=== PATIENT | male | born 1990 | race Caucasian/White ===

== ENCOUNTER 2018-02-08 18:29 | Emergency (ER) | payer OTHER, SELFPAY ==
[2018-02-08 18:32] VITALS: BP 157/95; PULSE 73; RESP 20; TEMP 36.2; O2SAT 97; BMI 34.8
--- NOTE | 2018-02-08 20:35 | ED_ITS ---
HPI - Eye Problem General Chief complaint: Eye Problems Stated complaint: ER EYE AND FACIAL SWELLING Time Seen by Provider: 02/08/18 20:00 Source: patient Mode of arrival: ambulatory Limitations: no limitations History of Present Illness HPI Narrative: Patient is a 28-year-old male who presents with right eye pain. He was working on his deep and a bowl full up and hit him in the eye. His he does have pain denies any blurry vision. Sometimes he has a foreign body sensation. He does were glasses. He is able to open his eye completely. He initially was having some green discharge but that has resolved. chief complaint: eye pain Review of Systems Review of Systems GENERAL: Denies chills,fever HEENT: See HPI RESPIRATORY: Denies dyspnea, cough, wheezing CARDIOVASCULAR: Denies chest pain, palpitations GASTROINTESTINAL: Denies nausea, vomiting MUSCULOSKELETAL: Denies extremity pain, injury SKIN: No rash, no laceration, no pruritus NEUROLOGIC: Denies weakness, dizziness, headache, numbness 8 point review of systems is negative except for those stated above and HPI PFSH Medical History Healthy adult (Acute) Social History Smoking Status: Current some day smoker Exam Initial Vital Signs Initial Vital Signs: Vital Signs Temperature 97.2 F L 02/08/18 18:32 Pulse Rate 73 02/08/18 18:32 Respiratory Rate 20 02/08/18 18:32 Blood Pressure 157/95 H 02/08/18 18:32 Pulse Oximetry 97 02/08/18 18:32 GENERAL: Well-appearing, well-nourished and in no acute distress. CARDIOVASCULAR: peripheral pulses in tact, cap refill <2 sec RESPIRATORY: No respiratory distress, speaks in full sentences without difficulty EXTREMITIES: Normal range of motion, no clubbing or edema. Neurovascularly intact NEUROLOGICAL: Cranial nerves II through XII grossly intact. Normal gait and speech. SKIN: Warm, dry, no petechiae, no rashes or lesions. Eyes Alignment and Position: alignment normal Periorbital: periorbital findings abnormal right periorbital swelling and periorbital tenderness Eyelids: eyelid abnormality right upper eyelid (Contusion minimal swelling) tenderness Conjunctivae: conjunctivae normal Sclera: sclerae normal Cornea: corneas normal Pupils: PERRL EOM: EOM intact bilaterally Direct ophthalmoscopy: normal light reflex Other: Right eye: is stained with fluorescein and examined under Garsia lamp, no dye uptake. Pressure 17 mmHg Left eye: Pressure 19mmHg Course Vital Signs - 8 hr 02/08/18 18:32 02/08/18 20:40 Temperature 97.2 F L 97.7 F Pulse Rate 73 52 L Respiratory Rate 20 12 Blood Pressure 157/95 H Blood Pressure [Right Arm] 144/85 H Pulse Oximetry 97 99 MDM - Eye Problem Lab Data Please seen nursing for visual acuity Discharge Plan Departure Patient Disposition: Home Clinical Impression: Contusion of eyelid, right Discharge Date/Time: 02/08/18 21:06 Interventions: ED Discharge Assessment Last Done: 02/08/18 21:05 Instructions: DI for Eye Contusion Activity Restrictions/Additional Instructions: *You have been diagnosed with right eye contusion *What to do: Expect to have some swelling in the morning for the next couple days but overall should start to get better. Ice 20 30 min at a time then removed *Continue to take medications as directed Ibuprofen 600 mg every 6-8 hours if needed for pain *Follow up with your primary care provider in 2-3 days *Return to ER if you should have decreased vision, increased eye pain or any new , worsening or concerning symptoms Referrals: Yelena Siddiqui MD [Physician] -
[2018-02-08 20:40] VITALS: BP 144/85; PULSE 52; RESP 12; TEMP 36.5; O2SAT 99
== END 2018-02-08 21:06 | disposition home or self-care (01) ==
PROVIDERS: Emergency Provider Emergency Medicine
DX: S00.11XA Contusion of right eyelid and periocular area, initial encounter (principal); W22.8XXA Striking against or struck by other objects, initial encounter
CPT/HCPCS: 99283

== ENCOUNTER → 2020-07-17 09:32 | Outpatient (CLI) | payer OTHER, SELFPAY ==
[2020-07-17 10:01] LABS: COVID19 -Nasal RAPID Negative (Negative)
== END ==
PROVIDERS: PCP Student in an Organized Health Care Education/Training Program; Visit Provider Surgery
DX: Z20.822 Contact with and (suspected) exposure to COVID-19 (principal)
CPT/HCPCS: 87635; C9803

== ENCOUNTER 2020-07-20 06:16 | Day surgery (SDC) | payer OTHER, SELFPAY ==
--- NOTE | 2020-07-20 | PATH_ITS ---
[facility] Accession Number: [id number] . 01 Material submitted: . body - PILONIDAL SINUS . 02 Diagnosis: Pilonidal Sinus, Biopsy: Skin with subcutaneous chronic active inflammation and granulation tissue, consistent with the surgical impression of pilonidal sinus. No evidence of neoplasm. MRV 07/23/2020 0919 Local . 02 Electronically signed: . Ana M Harris MD, Pathologist NPI- [id number] . 01 Gross description: . The specimen is received in formalin, labeled pilonidal sinus and consists of three mac fragments of skin and soft tissue measuring 1.8 x 0.6 x 0.4 cm in aggregate. The margins are inked blue. The specimen is entirely submitted in cassette A1. (EA:[id number]) /MRV 07/22/2020 1415 Local . 02 Pathologist provided ICD-10: L05.92 . 02 CPT . 008983 Performed at: 01 [facility] [address] [place] [address], [place], [place] [id number] MD Valentin Boudreaux MD Phone: [phone] Performed at: 02 [facility] [address] [place], [place] [id number] MD Ana M Harris MD Phone: [phone]
[2020-07-20 06:54] VITALS: BP 154/96; PULSE 57; RESP 13; TEMP 36.8; O2SAT 99
[2020-07-20] MEDS: LACTATED RINGERS 1,000 ML 100 ML IV (07:09)
[2020-07-20] MEDS: ACETAMINOPHEN 325 MG TABLET 975 MG PO (07:18)
--- NOTE | 2020-07-20 07:37 | PM.HP.1 ---
History of Present Illness History of Present Illness Date Patient Seen: 07/20/20 Time Patient Seen: 07:38 Chief complaint: EXCISION OF PILONIDAL CYST Narrative: This is a 30 yo man with history of morbid obesity (BMI 40), cystic acne, chronic skin abscesses, psoriasis who comes in with c/o pilonidal cyst and thigh abscess. He has has an eight year history of pilonidal disease. He has had the abscess drained twice, and it is currently fairly quiescent. The last drainage procedure was about three months ago, associated with swelling, pain, warmth, tenderness, and fluctuance. He has also had chronic skin infections in both axilla, on his chest and back, in his groin, and between his thighs. In the past he has incised the abscesses himself and allowed them to drain. He has never been diagnosed with hidradenitis. He currently has an active abscess on his left inner thigh. He does not have any active abscesses in the other areas. He was following at [facility] in [place] for his psoriasis prior to [facility] but has not been seen in many months. He says he was using a steroid cream but he has run out and has not used it for a while. ROS: Skin lesions, joint pain Thirteen system review is otherwise negative other than as mentioned below and in HPI. PE: GENERAL: Well groomed and cooperative. Morbidly obese. Appears stated age. Answers questions promptly and appropriately. Vital signs noted. HENT: Normocephalic, atraumatic. Hearing intact. EYES: Conjunctiva pink, sclera white, no periorbital swelling. CARDIOVASCULAR: Regular rate. No pedal edema. RESPIRATORY: Non-tachypneic, breathing comfortably on room air. GASTROINTESTINAL: Abdomen soft and non-distended GENITALURINARY: No flank tenderness. MUSCULOSKELETAL: Equal tone and mass bilaterally. NEURO: Alert and Oriented X 3. No gross sensory deficits, or cognitive issues. PSYCH: Appropriate affect and mood. Patient History Medical History Healthy adult Pilonidal cyst Family & Social History Social History: household members spouse Tobacco & Substance use: Smoking Status Former smoker alcohol intake current alcohol intake frequency a few times a month Substance Use Type does not use Meds Home Medications and Allergies Home Medications Medication Instructions Recorded Confirmed Type No Known Home Medications 05/26/20 07/08/20 History Allergies Allergy/AdvReac Type Severity Reaction Status Date / Time No Known Drug Allergies Allergy Unverified 07/08/20 14:18 Exam Vital Signs (past 8 hours): - 07/20/20 06:54 Temperature 98.3 F Pulse Rate 57 L Respiratory Rate 13 Blood Pressure 154/96 H Pulse Oximetry 99 Oxygen Delivery Method Room Air Oxygen Flow Rate 0 Assessment & Plan Assessment and plan (1) Morbid obesity: Status: Acute (2) Pilonidal cyst: Status: Acute Assessment & Plan narrative: Risks and benefits of pilonidal cyst excision or discussed the risk of bleeding infection, damage to nearby structures, recurrence, need for additional procedures. Plan: Proceed to OR for condyle cyst excision COVID-19 COVID-19 status: Negative Result date/Date tested (Pos, Neg/Pending): 07/17/20 Time Spent With Patient Time with patient: 15-24 minutes Quality VTE Deep Vein Thrombosis/Pulmonary Embolism Present on Admission: No
[2020-07-20] MEDS: CEFAZOLIN 2 GM/100 ML FROZ.PIGGY IV (07:51)
[2020-07-20] MEDS: metroNIDAZOLE 500 MG/100 ML PIGGYBACK 100 MG IV (08:06)
--- NOTE | 2020-07-20 08:11 | SUR.OPER ---
Prone on padded OR bed, head in foam head support, gel chest rolls, gel pad under knees, pillow under lower legs, toes free of pressure, arms secured on padded arm boards at <90 degrees abduction. Safety belt at thigh.
[2020-07-20] MEDS: BUPIVACAINE LIPOSOME 266 MG/20 ML VIAL INJ (08:21)
[2020-07-20] MEDS: BUPIVACAINE 0.5% W/ EPI (PF) 30 ML VIAL INJ (08:23)
--- NOTE | 2020-07-20 08:28 | PM.OP.1 ---
Operative Date/Time/Diagnoses Date of procedure: 07/20/20 Time of procedure: 08:28 Pre-op diagnosis: Pilonidal cyst Post-op diagnosis: other (Three chronic pilonidal sinuses with one communicating cyst overlying the presacral fascia) Procedure & Clinicians Procedure: Pilonidal cyst excision Same procedure as scheduled: Yes Indications: Chronic pilonidal cyst Surgeon: Mary Coker Click Yes if Unassisted: Yes Anesthesia Type: General Operative Notes Findings: Chronic pilonidal cyst with 3 associated pilonidal sinuses Specimen(s): other (Pilonidal sinus x3) Estimated Blood Loss (mL): 2 Procedure in detail: The patient was brought into the OR. Sequential compression devices were placed on both legs and turned on. Appropriate perioperative antibiotics were given. General anesthesia was induced and the patient was intubated. The patient was turned prone onto the OR table. All bony prominences were padded. The buttocks were taped apart. The perianal area was prepped and draped in sterile fashion with betadine prep. Surgical timeout was conducted. Three pits were noted at the sacrococcygeal midline, consistent with pilonidal sinuses. 0.5% Marcaine with epi was used to infiltrate the sacrococcygeal area. A lacrimal probe was used to interrogate each of the pilonidal sinuses. Each pit was found to track down to the presacral fascia. A 4 mm biopsy punch was then used to excise the core of each of the pilonidal pits down to the presacral fascia. The pilonidal cyst beneath the skin was then debrided using curettes, 4 x 4 gauze, and saline irrigation. Hair and chronic inflammatory granulation tissue was removed, until the cavity was clean. The surgical site was infiltrated with an additional 20 mL of 0.5% Marcaine with epi for a total of 30 mL for the case. 20 mL of Exparel used to infiltrate the surgical wound. Each of the pits was then packed with quarter-inch iodoform gauze, and 1 long strip. A 2 and tail was left hanging out from the last pit. There was good hemostasis at this point. The remaining Betadine was washed off of the skin. A stack of 4x4 gauze was then used to cover the surgical site and secured in place with medipore tape. The patient was transferred onto her hospital bed into supine position. He was then awakened from anesthesia and extubated. Needle, sponge, and instrument counts were correct x 2. The patient was transferred to the PACU in stable condition. Complications: none Post-operative Condition: stable Disposition: PACU
[2020-07-20 08:29] VITALS: BP 149/90; PULSE 90; RESP 17; TEMP 36.4; O2SAT 94
[2020-07-20 08:34] VITALS: BP 141/88; PULSE 85; RESP 11; O2SAT 96
[2020-07-20 08:40] VITALS: BP 153/88; PULSE 85; RESP 12; O2SAT 95
[2020-07-20 08:45] VITALS: BP 154/95; PULSE 78; RESP 17; TEMP 36.3; O2SAT 98
--- NOTE | 2020-07-20 08:47 | SUR.PHASEI ---
states that he can feel where the ETT was but declines to give it a number. Denies pain/nausea. HOB elevated, fluids given. Rosa Isaac and Sheela have spoken to the patient. 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
[2020-07-20 08:52] VITALS: BP 133/88; PULSE 77; RESP 17; TEMP 36.1; O2SAT 97
== END 2020-07-20 09:00 | disposition home or self-care (01) ==
LOC: OR 06:17
PROVIDERS: PCP Student in an Organized Health Care Education/Training Program; Referring Provider Student in an Organized Health Care Education/Training Program; Visit Provider Surgery
PROC: (CPT 10080; principal; 2020-07-20 07:45)
DX: L05.91 Pilonidal cyst without abscess (principal); E66.01 Morbid (severe) obesity due to excess calories; Z68.41 Body mass index [BMI] 40.0-44.9, adult; L40.9 Psoriasis, unspecified; L70.0 Acne vulgaris
CPT/HCPCS: 10080; 82962; C9290; J0330; J0690; J1100; J1885; J2250; J2405; J2704; J3010